=== PATIENT | female | born 1960 | race Caucasian/White ===

== ENCOUNTER 2022-12-12 11:32 | Outpatient (CLI) | payer MEDICAID | END 2022-12-12 11:33 | disposition EMS.NT | LOC: EMS 11:32 | DX: Z03.89 Encounter for observation for other suspected diseases and conditions ruled out (principal) ==

== ENCOUNTER 2022-12-13 13:11 | Observation (INO) | payer MEDICAID ==
--- NOTE | 2022-12-13 13:39 | ED Physician Documentation ---
History of Present Illness - Stated complaint Stated Complaint: MOUTH TINGLING/RT ARM NUMB - Chief complaint Chief Complaint: Neuro - Additonal information Additional information: 62-year-old female presents emergency department for evaluation and concern of recent TIAs. For the last week she has had 4 episodes in which her right arm goes completely numb and she is unable to move it. The symptoms last anywhere from a few seconds up to about 5 minutes. Last episode was yesterday afternoon. Following this episode she also had a period of perioral numbness and tingling that quickly resolved. During these episodes she is denying a slurred speech or facial droop. Patient reports that she had COVID infection about 2 weeks ago. She is vaccinated though not boosted. She is a pack per day tobacco user. Takes no prescribed medications and denies any history of hypertension, known coronary artery disease or previous stroke. She went to a local walk-in clinic this morning and was advised to come to the ER. She is denying any current symptoms as described above. Review of Systems Constitutional: denies: Fever, Chills Cardiac: reports: Reviewed and negative Respiratory: reports: Reviewed and negative GI: reports: Reviewed and negative Musculoskeletal: reports: Reviewed and negative Neurologic: reports: Focal weakness. 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 - Present Medications Home Medications: Ambulatory Orders Medication Instructions Recorded Confirmed No Known Home Medications 12/13/22 12/13/22 - Allergies Allergies/Adverse Reactions: Allergies Allergy/AdvReac Type Severity Reaction Status Date / Time Penicillins Allergy Rash Verified 12/13/22 13:26 Sulfa (Sulfonamide Allergy Rash Verified 12/13/22 13:26 Antibiotics) - Social History Does the pt smoke?: Yes Smoking Status: Current every day smoker Does the pt drink ETOH?: No Does the pt have substance abuse?: Yes Substance Use and Type: Marijuana - Immunizations Immunizations are current?: Yes PD ED PE NORMAL - General General: Alert and oriented X 3, No acute distress, Well developed/nourished - HEENT HEENT: Atraumatic, Moist mucous membranes - Neck Neck: Supple, no meningeal sign, No adenopathy - Cardiac Cardiac: RRR, No murmur - Respiratory Respiratory: No respiratory distress - Abdomen Abdomen: Normal bowel sounds, Soft - Neuro Neuro: Alert and oriented X 3, log grader 2-12 intact, No motor deficit, No sensory deficit, Normal speech Eye Opening: Spontaneous Motor: Obeys Commands Verbal: Oriented GCS Score: 15 Results - Vitals Vitals: Vital Signs - 24 hr 12/13/22 12/13/22 12/13/22 13:22 14:04 16:00 Temperature 36.7 C Heart Rate 89 83 79 Respiratory 16 19 17 Rate Blood Pressure 108/59 L 106/71 113/70 O2 Saturation 98 94 96 Oxygen O2 Source Room air - EKG (time done) 1358 EKG releavant findings:: EKG personally interpreted by author of this note. Relevant findings are: Rate: Rate (enter#) (78) Rhythm: NSR [place]: Normal Intervals: Normal DE QRS: Normal Ischemia: Normal ST segments Compare to prior EKG: Old EKG unavailable Computer interpretation: Agree with computer - Labs Labs: Laboratory Tests 12/13/22 12/13/22 12/13/22 13:39 13:39 13:39 WBC 10.2 RBC 4.38 Hgb 13.3 Hct 39.1 MCV 89.3 MCH 30.4 MCHC 34.0 RDW 13.2 Plt Count 362 MPV 9.6 Neut # (Auto) 5.7 Lymph # (Auto) 3.8 H Bath # (Auto) 0.6 Eos # (Auto) 0.1 Baso # (Auto) 0.1 Absolute Nucleated RBC 0.00 Nucleated RBC % 0.0 PT 13.1 H INR 1.2 Sodium 136 Potassium 3.8 Chloride 104 Carbon Dioxide 27 Anion Gap 5.0 L BUN 11 Creatinine 0.7 Estimated GFR (MDRD) 85 L Glucose 162 H Calcium 9.6 Total Bilirubin 0.5 AST 13 ALT 11 Alkaline Phosphatase 61 Total Protein 7.1 Albumin 4.3 Globulin 2.8 Albumin/Globulin Ratio 1.5 Lipase 42 - Rads (name of study) angio head neck Relevant Findings:: Final report received (6 atherosclerotic plaque without significant stenosis, large vessel occlusion or aneurysm. Degenerative disc disease and arthropathy in the cervical spine results in moderate to severe central stenosis C4-C6) PD Medical Decision Making - ED course Complexity details: reviewed results, re-evaluated patient, d/w patient ED course: 62-year-old female presents emergency department for evaluation of 4 episodes over the last week in which she has lost sensation and movement of the right arm. The symptoms last anywhere from about 30 seconds to 5 minutes. Last episode was yesterday afternoon. She is also had some associated perioral numbness and tingling. Patient is a heavy tobacco user smoking 1 pack/day. Denies any known history of coronary artery disease or previous strokes. Takes no prescribed medications. Presentation to the emergency department today she is asymptomatic and has no acute focal neurological findings. Her NIHSS is 0. She was placed on monitoring coordinator and is in sinus rhythm. Her twelve-lead EKG per my interpretation was nonischemic. CBC and electrolytes were obtained and per my interpretation no acute abnormalities. CT angiograms of the head and neck were also obtained which showed no significant stenosis aneurysm or obvious intracranial findings. Patient was administered 325 mg of aspirin here in the ER. However this patient does present with recurrent TIA episodes over the last week. She will be brought into the hospital overnight for observation. Echo pending for the morning. As well as an MRI. I have spoken to the patient who is in agreement for further hobs evaluation and Dr. Kinsey graciously agrees to admit for further evaluation and management. Departure - Departure Disposition: ED Place in Observation Clinical Impression: TIA (transient ischemic attack) Forms: PCP List NIHSS - Time Time: 13:35 - Level of Consciousness Level of consciousness: (0) Alert, Keenly responsive LOC Questions: (0) Answers both Q's correct LOC Commands: (0) Performs both correctly - Gaze Best Gaze: (0) Normal - Visual Visual: (0) No loss - Facial Palsy Facial Palsy: (0) Normal, symmetrical movement - Motor Arms (both separate) Motor Arm (right): (0) No drift Motor Arm (left): (0) No drift - Motor Legs (both separate) Motor Leg (right): (0) No drift Motor Leg (left): (0) No drift - Limb Ataxia Limb Ataxia: (0) Absent - Sensory Sensory: (0) Normal - Best Language Best Language: (0) No aphasia - Dysarthria Dysarthria: (0) Normal - Extinction and Inattention (formally neg Extinction and inattention: (0) No abnormality - Total Score/Results Total Score/Result: 0
[2022-12-13 14:06] LABS: BASOPHILS # (AUTO) 0.1 10^3/uL (0.0-0.1); BASOPHILS % (AUTO) 0.7 %; EOSINOPHILS # (AUTO) 0.1 10^3/uL (0.0-0.7); EOSINOPHILS % (AUTO) 0.8 %; HCT - HEMATOCRIT 39.1 % (37.0-47.0); HGB - HEMOGLOBIN 13.3 g/dL (12.0-16.0); LYMPHOCYTES # (AUTO) 3.8 10^3/uL (1.5-3.5); MEAN CORPUSCULAR HEMOGLOBIN 30.4 pg (27.0-31.0); MEAN CORPUSCULAR VOLUME 89.3 fL (81.0-99.0); MEAN PLATELET VOLUME 9.6 fL (7.9-10.8); MONOCYTES # (AUTO) 0.6 10^3/uL (0.0-1.0); MONOCYTES % (AUTO) 5.9 %; NEUTROPHILS # (AUTO) 5.7 10^3/uL (1.5-6.6); NEUTROPHILS % (AUTO) 55.3 %; PLT - PLATELET COUNT 362 10^3/uL (130-450); RED BLOOD COUNT 4.38 10^6/uL (4.20-5.40); RED CELL DISTRIBUTION WIDTH 13.2 % (12.0-15.0); WHITE BLOOD COUNT 10.2 x10^3/uL (4.8-10.8)
[2022-12-13 14:11] LABS: INR 1.2 (0.8-1.2); PT - PROTHROMBIN TIME 13.1 secs (9.9-12.6)
[2022-12-13 14:17] LABS: ALBUMIN 4.3 g/dL (3.2-5.5); ALBUMIN/GLOBULIN RATIO 1.5 (1.0-2.2); BILIRUBIN,TOTAL 0.5 mg/dL (0.2-1.0); CALCIUM 9.6 mg/dL (8.5-10.3); CREATININE 0.7 mg/dL (0.6-1.3); POTASSIUM 3.8 mmol/L (3.5-4.5); TOTAL PROTEIN 7.1 g/dL (6.4-8.9)
[2022-12-13] MEDS ORDERED: iohexoL-300 100 ML VIAL IVP ONE (15:31)
--- NOTE | 2022-12-13 16:18 | CT Report ---
PROCEDURE: CT Angio Head/Neck INDICATIONS: ? TIA TECHNIQUE: Helical axial CT of the head and neck was obtained during the arterial phase of a intrave nous contrast injection utilizing an angiographic protocol. Multiplanar traditional and MIP reformat s were also obtained. COMPLIANCE STATEMENTS: Any estimate of proximal ICA stenosis was calculated using NASCET guidelines. Dose reduction techniques included either automated exposure control or adjustment of exposure sandip eters. COMPARISON: None. FINDINGS: Cerebral CT Angiogram: Internal carotid arteries: No acute findings. Intracranial ICA are patent with no significant steno sis. No occlusion. No aneurysm. Anterior cerebral arteries: Unremarkable. No significant stenosis. No occlusion. No aneurysm. Middle cerebral arteries: Unremarkable. No significant stenosis. No occlusion. No aneurysm. Posterior cerebral arteries: Unremarkable. No significant stenosis. No occlusion. No aneurysm. Basilar artery: Unremarkable. No significant stenosis. No occlusion. No aneurysm. Vertebral arteries: Unremarkable as visualized. Dural venous sinuses: Unremarkable given phase of enhancement. Other: Arterial phase appearance of the brain parenchyma is unremarkable. Left maxillary sinus mucosa l thickening measures up to [address] Angiogram: Internal carotid arteries: Atherosclerotic plaque in both proximal internal carotid arteries without stenosis utilizing NASCET criteria Common carotid arteries: Unremarkable. No significant stenosis. No dissection or occlusion. External carotid arteries: Unremarkable. No occlusion. Vertebral arteries: Unremarkable. No significant stenosis. No dissection or occlusion. Aortic Arch and Mediastinum: Partially visualized aortic arch unremarkable without evidence of aneury sm. Origins of the great vessels unremarkable. Other: Arterial phase soft tissues of the neck are unremarkable. Severe biapical pulmonary emphysema present. Multilevel degenerative disc disease and arthropathy results in varying degrees of central a nd foraminal stenosis including moderate to severe central stenosis C4-5 and C5-6 IMPRESSION: Atherosclerotic plaque without significant stenosis, large vessel occlusion or aneurysm. Degenerative disc disease and arthropathy in the cervical spine results in moderate to severe central stenosis at C4-5 and C5-6. Reviewed by: Rickey Patel MD on 12/13/2022 3:17 PM [facility] Approved by: Rickey Patel MD on 12/13/2022 3:17 PM [place] Station ID: [id number]
[2022-12-13] MEDS ORDERED: ASPIRIN CHEW 81 MG TABLET PO STA (16:32)
[2022-12-13] MEDS ORDERED: ONDANSETRON 4 MG/2 ML VIAL IVP PRN (17:34)
[2022-12-13] MEDS ORDERED: SODIUM CHLORIDE FLUSH 0.9% 10 ML SYRINGE IVP PRN (17:34)
[2022-12-13] MEDS ORDERED: ACETAMINOPHEN 325 MG TABLET PO PRN (17:34)
--- NOTE | 2022-12-13 17:43 | HISTORY & PHYSICAL EXAMINATION ---
Chief Complaint - Chief Complaint Chief Complaint: R arm numb and weak, comes and goes, 4 episodes History of Present Illness - Admitted From Admitted From:: ED - History Obtained From History obtained from: ED provider and the patient - History of Present Illness HPI Comment/Other: This is a 62-year-old white female with a negative past medical history. She is a 1 pack-a-day smoker. She presented to the walk-in clinic today and was sent to the ER for evaluation of her complaint, which was that over the past 1 week, she has had 4 episodes of sudden numbness and weakness of the right arm. These episodes last from 30 seconds to 5 minutes. The last one was yesterday. Following this, there is brief perioral numbness. There are no other areas of weakness, no problems with speech. She has never had a stroke before, and has no cardiac history. In the ED, she underwent brain imaging with angio that showed no large vessel occlusions, no findings of a stroke or mass or hemorrhage. The ED provider spoke to me about this patient. She will be placed in Observation for further evaluation of a TIA. History - Past Medical History Cardiovascular: reports: None Respiratory: reports: COPD (Dx 12 years ago. 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 Living arrangement: At home Living Situation: With spouse/s.o. 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 She smokes up to a PPD. She drinks no alcohol. She occais smokes marijuana. - Substance History Dependence: Experiences withdrawal or developed tolerances: Tobacco - POLST Patient has POLST: No Meds/Allgy - Home Medications Home Medications: Ambulatory Orders Medication Instructions Recorded Confirmed No Known Home Medications 12/13/22 12/13/22 - Allergies Allergies/Adverse Reactions: Allergies Allergy/AdvReac Type Severity Reaction Status Date / Time Penicillins Allergy Rash Verified 12/13/22 13:26 Sulfa (Sulfonamide Allergy Rash Verified 12/13/22 13:26 Antibiotics) Review of Systems - Neurological Neurological: reports: Focal weakness - All Other Systems All Other Systems: reports: Reviewed and negative Exam - Vital Signs Vital Signs: Vital Signs x48h Temp Pulse Resp BP Pulse Ox 12/13/22 16:00 79 17 113/70 96 12/13/22 14:04 83 19 106/71 94 12/13/22 13:22 36.7 C 89 16 108/59 L 98 - Physical Exam General Appearance: positive: No acute distress, Alert Eyes Bilateral: positive: Normal inspection, EOMI ENT: positive: ENT inspection nml, No signs of dehydration Neck: positive: Nml inspection, No JVD, Carotid bruit (R sided) Respiratory: positive: No respiratory distress, Wheezes (at R apex) Cardiovascular: positive: Regular rate & rhythm, No murmur Abdomen: positive: No organomegaly, Nml bowel sounds, No distention Skin: positive: Warm, Dry Extremities: positive: Non-tender, No pedal edema Neurologic/Psychiatric: positive: Oriented x3, Motor nml, Sensation nml Conclusion/Plan - Problem List (1) TIA (transient ischemic attack) Conclusion/Plan: Plan: We will place the patient on telemetry to watch for A-fib Obtain an Echo with bubble study to eval for source of embolus or shunt Obtain MRI brain Check her fasting lipid panel and treat per guidelines. Continue with 1 baby aspirin daily lifelong. If neurodeficit recurrs, will order neurochecks q4h (2) Carotid bruit Conclusion/Plan: Will obtain carotid Doppler exam Qualifiers: Laterality: right Qualified Code(s): R09.89 - Other specified symptoms and signs involving the circulatory and respiratory systems (3) Tobacco use Conclusion/Plan: Plan: Will order nicotine patch as needed nicotine urges Smoking cessation will be promoted - Lab Results Fish Bones: 12/13/22 13:39 12/13/22 13:39 - Diagnostic Imaging Results Diagnostic Imaging Results: positive: Final report reviewed
--- NOTE | 2022-12-13 18:12 | MRI Report ---
PROCEDURE: BRAIN WO INDICATIONS: TIA X 4 over the last week TECHNIQUE: Noncontrast axial T1 spin echo, axial T2 fast spin echo, sagittal and axial FLAIR, coronal T2 fast sp in echo, axial gradient echo, axial diffusion and ADC through the brain. COMPARISON: None. FINDINGS: Image quality: Excellent. CSF Spaces: Basal cisterns are patent. No extra-axial fluid collections. Ventricles are normal in size and shape. Brain: No intracranial masses or hemorrhage. Walker/white matter interface is normal. Brainstem appe ars normal. Small focus of restricted diffusion in the subcortical white matter of the middle left fr ontal lobe (series 9, image 36). No chronic ischemic insults. Normal intravascular flow voids are pr esent. Skull and face: Calvarium has normal marrow signal. Orbits appear normal. Sinuses: Sinuses and mastoids are clear. IMPRESSION: Small focus of restricted diffusion without corresponding T2 FLAIR edema in the middle left frontal l obe, suggestive of acute infarct, probably late acute given history. Reviewed by: Sonny Garza on 12/13/2022 6:10 PM [facility] Approved by: Sonny Garza on 12/13/2022 6:10 PM PST Station ID: [id number]
[2022-12-13] MEDS: NICOTINE 14 MG PATCH TOP SCH (18:31)
[2022-12-13] MEDS ORDERED: diphenhydrAMINE 25 MG CAPSULE PO PRN (21:19)
[2022-12-13] MEDS: guaiFENesin 600 MG TABLET PO SCH (21:31)
--- NOTE | 2022-12-13 23:20 | Ultrasound Report ---
PROCEDURE: Carotid Doppler Complete INDICATIONS: TIAs, R-sided carotid bruit heard TECHNIQUE: Color and pulse Doppler interrogation was performed of both carotid systems, with image documentation and velocity measurements. COMPARISON: None. FINDINGS: Right side: Brachial blood pressure: 115/56 mm Hg. Common carotid artery peak systolic velocity: 89.8 cm/sec. Internal carotid artery peak systolic velocity: 94.5 cm/sec. Internal carotid artery end diastolic velocity: 34.7 cm/sec. External carotid artery peak systolic velocity: 103.9 cm/sec. ICA/CCA peak systolic ratio: 1.1 . Walker scale imaging description: Mild to moderate amount of atherosclerotic plaques are seen in dista l common carotid artery and proximal internal and external carotid arteries. Percent internal carotid artery stenosis: Less than 50 percent stenosis.. Vertebral artery: Flow direction is antegrade. Left side: Brachial blood pressure: 112/64 mm Hg. Common carotid artery peak systolic velocity: 144.2 cm/sec. Internal carotid artery peak systolic velocity: 92.2 cm/sec. Internal carotid artery end diastolic velocity: 21.5 cm/sec. External carotid artery peak systolic velocity: 104.9 cm/sec. ICA/CCA peak systolic ratio: 0.6 . Walker scale imaging description: Mild to moderate amount of atherosclerotic plaques are noted in dist al common carotid artery and proximal internal and external carotid arteries. Percent internal carotid artery stenosis: Less than 50 percent stenosis. Vertebral artery: Flow direction is antegrade. IMPRESSION: 1. In the right internal carotid artery, there is less than 50 percent stenosis based on peak systoli c velocity criteria. 2. In the left internal carotid artery, there is less than 50 percent stenosis based on peak systolic velocity criteria. 3. Antegrade blood flow within the right vertebral artery. 4. Antegrade blood flow within the left vertebral artery. The estimate of stenosis included in the report of the imaging study was calculated using the [facility]-end orsed standards of carotid artery stenosis. Reviewed by: Isael Engel MD on 12/13/2022 11:19 PM PST Approved by: Isael Engel MD on 12/13/2022 11:19 PM PST Station ID: [id number]
[2022-12-14] MEDS: SODIUM CHLORIDE FLUSH 0.9% 10 ML SYRINGE IVP SCH ×3 (00:04→18:15)
[2022-12-14 06:08] LABS: CHOL/HDL RATIO 5.6 (<4.4); CHOLESTEROL 230 mg/dL; HDL CHOLESTEROL 41 mg/dL; LDL CHOLESTEROL,CALCULATED 160 mg/dL; LDL/HDL RATIO 3.9 (<4.4); TRIGLYCERIDES 144 mg/dL (48-352); VLDL CHOLESTEROL 29 mg/dL
[2022-12-14] MEDS: guaiFENesin 600 MG TABLET PO SCH (08:22)
[2022-12-14] MEDS: NICOTINE 14 MG PATCH TOP SCH (08:23)
[2022-12-14] MEDS ORDERED: ASPIRIN EC 81 MG TABLET PO SCH (09:00)
--- NOTE | 2022-12-14 11:15 | PHARMACY PROGRESS NOTE ---
- Best Possible Medication History Admit Date and Time: 12/13/22 1734 Processed by: Pharmacy Medication History completed: Yes Patient Interview: Completed Secondary Source(s): Insurance records As the person ultimately responsible for medication therapy, providers are able to order a medication from an existing home medication list in [facility] via the "Reconcile Routine" prior to Confirmation of that medication by contracting support specialist. Such practice is discouraged except when the physician, in their clinical judgment, deems that a medical need exists for a medication without regard to previous use.
--- NOTE | 2022-12-14 17:37 | Discharge Plan ---
Discharge Plan Problem Reviewed?: Yes Disposition: Home, Self Care Condition: Good Diet: Cardiac Activity Restrictions: No Restrictions No Smoking: If you smoke, Please STOP! Call for help.
--- NOTE | 2022-12-14 17:43 | DISCHARGE SUMMARY ---
Discharge Summary Discharge Date: 12/14/22 Discharging Provider: Jaydon Gardner DO Code Status: Attempt Resuscitation Condition at Discharge: Good Discharge Disposition: 01 Home, Self Care - DIAGNOSES Admission Diagnoses: Ischemic CVA Discharge Diagnoses with Status of Each Condition: Ischemic CVA with no residual weakness - HPI History of Present Illness: This is a 62-year-old white female with a negative past medical history. She is a 1 pack-a-day smoker. She presented to the walk-in clinic today and was sent to the ER for evaluation of her complaint, which was that over the past 1 week, she has had 4 episodes of sudden numbness and weakness of the right arm. These episodes last from 30 seconds to 5 minutes. The last one was yesterday. Following this, there is brief perioral numbness. There are no other areas of weakness, no problems with speech. She has never had a stroke before, and has no cardiac history. In the ED, she underwent brain imaging with angio that showed no large vessel occlusions, no findings of a stroke or mass or hemorrhage. The ED provider spoke to me about this patient. She will be placed in Observation for further evaluation of a TIA. - HOSPITAL COURSE Hospital Course: Patient is a 62-year-old female who presented to the ED due to complaints of right arm weakness over 1 week. In the ED a CTA/CT head was performed which was unremarkable. This was followed by an MRI which revealed evidence of a left frontal lobe infarct. She was started on aspirin and atorvastatin. A TTE was performed showing no evidence of intracardiac thrombus. Patient had an LVEF of 60 to 65% with no evidence of left atrial enlargement. She was advised to quit smoking. Patient was also given information in order to establish care with PCP. - ALLERGIES Allergies/Adverse Reactions: Allergies Allergy/AdvReac Type Severity Reaction Status Date / Time Penicillins Allergy Rash Verified 12/13/22 13:26 Sulfa (Sulfonamide Allergy Rash Verified 12/13/22 13:26 Antibiotics) - MEDICATIONS Home Medications: Ambulatory Orders Medication Instructions Recorded Confirmed Acetaminophen [Aphen] 325 mg PO Q6H PRN 12/14/22 12/14/22 Albuterol Sulfate [Proventil Hfa] 2 puffs PO Q6H PRN 12/14/22 12/14/22 Aspirin [Aspirin EC] 81 mg PO DAILY #30 tab 12/14/22 Atorvastatin Calcium 40 mg PO DAILY #30 tablet 12/14/22 diphenhydrAMINE [Benadryl] 25 mg PO DAILY PRN 12/14/22 12/14/22 - PHYSICAL EXAM AT DISCHARGE General Appearance: positive: No acute distress, Alert Eyes Bilateral: positive: Normal inspection Respiratory: positive: Chest non-tender, No respiratory distress, Breath sounds nml Cardiovascular: positive: Regular rate & rhythm, No murmur Abdomen: positive: Non-tender, No distention Neurologic/Psychiatric: positive: Oriented x3, CN's nml (2-12), Motor nml, Sensation nml, Mood/affect nml - LABS Result Diagrams: 12/13/22 13:39 12/13/22 13:39 - QUALITY (Female Hip Fx Only) Was patient sent home on osteoporosis medication?: No - FOLLOW UP Follow Up: Was given a list of PCP's for follow-up. - TIME SPENT Time Spent in Discharge (Minutes): 35
[2022-12-14] MEDS ORDERED: ATORVASTATIN 40 MG TABLET PO SCH (18:00)
[2022-12-14 18:07] VITALS: BP 119/63; O2SAT 98
== END 2022-12-14 18:20 | disposition home or self-care (01) ==
LOC: ED 13:11 → MS2 17:34
PROVIDERS: ADMIT Internal Medicine; ATTEND Family Medicine
DX: I63.9 Cerebral infarction, unspecified (principal); R29.700 NIHSS score 0; J44.9 Chronic obstructive pulmonary disease, unspecified; M48.02 Spinal stenosis, cervical region; R09.89 Other specified symptoms and signs involving the circulatory and respiratory systems; E78.00 Pure hypercholesterolemia, unspecified; F17.210 Nicotine dependence, cigarettes, uncomplicated; Z86.16 Personal history of COVID-19; Z28.311 Partially vaccinated for COVID-19
CPT/HCPCS: 36415; 70496; 70498; 70551; 80053; 80061; 83690; 84443; 85025; 85610; 93005; 93306; 93880; 99284; 99285; 99406; A9270; G0378; Q9967; 83721

== ENCOUNTER 2023-02-11 10:47 | Outpatient (CLI) | payer MEDICAID ==
--- NOTE | 2023-02-11 16:26 | CT Report ---
PROCEDURE: Lung Cancer Screen INDICATIONS: TOBACCO ABUSE TECHNIQUE: A CT scan of the chest was performed. Intravenous contrast media was not administered. Images were re corded and evaluated at appropriate window settings. Reformats: axial MIP of the chest, coronal and s agittal. For radiation dose reduction, the following was used: automated exposure control, adjustment of mA and/or kV according to patient size. COMPARISON: None. FINDINGS: Image quality: Diagnostic. Prior cancer history: No. Lungs and pleura: No pleural effusions. No pneumothorax. Moderate centrilobular emphysema. There is a fat-containing soft tissue mass in the left lower lobe measuring 2.4 x 2.1 cm containing c entral dystrophic calcifications consistent with a benign hamartoma. There are multiple juxtapleural round solid pulmonary nodules with smooth margins measuring less than 7 mm. Additional scattered pulm onary nodules as follows: -5 mm right lower lobe nodule (3/244, MIP image 123) -6 mm left lower lobe nodule (3/247, MIP image 124) -6 mm right lower lobe nodule (3/210, MIP image 106) Additionally, there is a right middle lobe triangular shaped subfissural nodule (3/184, MIP image 92) is consistent with a subfissural lymph node. Mediastinum: Heart size is normal. No pericardial effusion. Moderate coronary artery calcifications.. No mediastinal adenopathy by size criteria. Chest wall and lower neck: Thyroid is unremarkable. No axillary or supraclavicular adenopathy by size . Bones: No aggressive osseous abnormality. Upper Abdomen: Mild degenerative changes without acute or suspicious osseous abnormality.. IMPRESSION: Moderate emphysematous changes. Left lower lobe hamartoma. Multiple smoothly marginated round juxtapleural pulmonary nodes measuring less than 10 mm. Multiple solid pulmonary nodules measuring up to 6 mm. Lung RAD: 3 - Probably Benign. Recommendation: Continue screening in 6 Months with LDCT Non-Lung Significant Findings: Coronary Arterial Calcification - Moderate or Severe. Consider cardiol ogy referral. Reviewed by: Argenis Watson MD on 02/11/2023 4:25 PM PST Approved by: Argenis Watson MD on 02/11/2023 4:25 PM PST Station ID: [id number]
== END 2023-02-11 10:48 | disposition home or self-care (01) ==
LOC: DI 10:47
PROVIDERS: ATTEND Physician Assistant Medical
DX: Z12.2 Encounter for screening for malignant neoplasm of respiratory organs (principal); J43.9 Emphysema, unspecified; R91.8 Other nonspecific abnormal finding of lung field; I25.10 Atherosclerotic heart disease of native coronary artery without angina pectoris; S27.321A Contusion of lung, unilateral, initial encounter; F17.200 Nicotine dependence, unspecified, uncomplicated

== ENCOUNTER 2023-03-28 12:24 | Outpatient (CLI) | payer MEDICAID ==
--- NOTE | 2023-03-29 09:32 | Mammography Report ---
BILATERAL DIGITAL DIAGNOSTIC MAMMOGRAM 3D/2D: 03/28/2023 CLINICAL: Right nipple lesion. Due for bilateral. No prior exams were available for comparison. Both breasts are heterogeneously dense, which may obscure small masses (category c / 51-75% glandular tissue). No significant masses, calcifications, or other findings are seen in either breast. Specifically, no finding to correspond to the patient's nipple abnormality. IMPRESSION: NEGATIVE There is no abnormality seen in the right breast to correspond with the nipple abnormality. Clinical follow up is recommended with PCP or senior windows engineer for symptoms as needed. There is no mammographic evidence of malignancy. Return to annual mammogram screening schedule is rec ommended. Findings and recommendations were conveyed to the patient at time of exam. Based on the Tyrer Cuzick model (a risk assessment model) the patient's lifetime risk is 9.8% and her 10 year risk is 4.4%. According to the ACR, ACS, and NCCN guidelines, an annual breast MRI exam saima g with mammogram is recommended if the patient's lifetime risk is 20% or greater. This exam was interpreted at Station ID: [id number]. NOTE: For mammograms, a report in lay terms will be sent to the patient. Approximately 15% of breast malignancies will not be visualized mammographically. In the management of a palpable breast mass, a negative mammogram must not discourage biopsy of a clinically suspicious lesion. Electronically Signed By: Shari barbour/:03/28/2023 13:12:26 ACR BI-RADS Category 1: Negative 3341F PARENCHYMAL PATTERN: (D) - The breast(s) demonstrate(s) heterogeneously dense fibroglandular parvikiy hammad. BI-RADS CATEGORY: (1) - 1 RECOMMENDATION: (ANNUAL) - Recommend routine annual screening mammography. [id number] return to screening LATERALITY: (B)
== END 2023-03-28 12:25 | disposition home or self-care (01) ==
LOC: DI 12:24
PROVIDERS: ATTEND Physician Assistant Medical
DX: N63.41 Unspecified lump in right breast, subareolar (principal); R92.333 Mammographic heterogeneous density, bilateral breasts

== ENCOUNTER 2023-04-19 04:31 | Outpatient (CLI) | payer MEDICAID | END 2023-04-19 04:32 | disposition critical access hospital (66) | LOC: EMS 04:31 | DX: M54.89 Other dorsalgia (principal); R55 Syncope and collapse | CPT/HCPCS: A0425; A0429; A0999 ==

== ENCOUNTER 2023-04-19 04:57 | Emergency (ER) | payer MEDICAID ==
--- NOTE | 2023-04-19 05:23 | ED Physician Documentation ---
PD HPI SYNCOPE - Stated complaint Stated Complaint: SYNCOPE S/P BACK PAIN EPISODE - Chief complaint Chief Complaint: Neuro - History obtained from History obtained from: Patient, EMS - History of Present Illness Witnessed: Witnessed Timing - onset: How many minutes ago (1) Duration: Minutes (1) Preceding symptoms: Other (back pain). No: Abdominal pain Associated symptoms: Other (she has had back pain for several days without known injury. Pain sharp intermittently, with increased pain today. Had severe pain episode just prior to the syncope.) Contributing factors: Noxious stimulae (severe back pain). No: Recent med change, Decreased PO intake Injury occurred: No: Fell, Head injury, Neck injury Similar symptoms before: No diagnosis (recent back pain without injury. 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 - Present Medications Home Medications: Ambulatory Orders Medication Instructions Recorded Confirmed Acetaminophen [Aphen] 325 mg PO Q6H PRN 12/14/22 04/19/23 Albuterol Sulfate [Proventil Hfa] 2 puffs PO Q6H PRN 12/14/22 04/19/23 Aspirin [Aspirin EC] 81 mg PO DAILY #30 tab 12/14/22 04/19/23 Atorvastatin Calcium 40 mg PO DAILY #30 tablet 12/14/22 04/19/23 diphenhydrAMINE [Benadryl] 25 mg PO DAILY PRN 12/14/22 04/19/23 Clopidogrel Bisulfate [Plavix] 75 mg PO DAILY 21 Days #21 tab 12/15/22 04/19/23 HYDROcod/ACETAM 5/325 [[place] 5/325] 1 ea PO Q6H PRN #25 tablet 04/19/23 Meloxicam [Mobic] 7.5 mg PO BID 15 Days #30 tablet 04/19/23 methocarbamoL [Robaxin] 500 mg PO Q6H PRN #30 tablet 04/19/23 - Allergies Allergies/Adverse Reactions: Allergies Allergy/AdvReac Type Severity Reaction Status Date / Time Penicillins Allergy Rash Verified 04/19/23 05:12 Sulfa (Sulfonamide Allergy Rash Verified 04/19/23 05:12 Antibiotics) - Social History Does the pt smoke?: Yes Smoking Status: Current every day smoker Does the pt drink ETOH?: No Does the pt have substance abuse?: Yes - Immunizations Immunizations are current?: Yes - POLST Patient has POLST: No PD ED PE NORMAL - Vitals Vital signs reviewed: Yes - General General: Alert and oriented X 3, Well developed/nourished, Other (in pain due to the back. No abd pain. ) - Neck Neck: Supple, no meningeal sign, No adenopathy - Cardiac Cardiac: RRR, No murmur - Respiratory Respiratory: No respiratory distress, Clear bilaterally - Abdomen Abdomen: Soft, Non tender - Back Back: No spinal TTP - Derm Derm: Normal color, Warm and dry - Extremities Extremities: No edema, No calf tenderness / cord - Neuro Neuro: Alert and oriented X 3, No motor deficit, Normal speech Results - Vitals Vitals: Oxygen O2 Source Room air - Labs Labs: Laboratory Tests 04/19/23 04/19/23 04/19/23 05:33 06:10 06:10 WBC 8.9 RBC 4.41 Hgb 12.9 Hct 41.1 MCV 93.2 MCH 29.3 MCHC 31.4 L RDW 13.3 Plt Count 245 MPV 9.2 Neut # (Auto) 5.7 Lymph # (Auto) 2.5 [place] # (Auto) 0.6 Eos # (Auto) 0.1 Baso # (Auto) 0.1 Absolute Nucleated RBC 0.00 Nucleated RBC % 0.0 Sodium 133 L Potassium 4.3 Chloride 103 Carbon Dioxide 26 Anion Gap 4.0 L BUN 18 Creatinine 0.8 Estimated GFR (MDRD) 72 L Glucose 140 H Calcium 9.4 Total Bilirubin 0.3 AST 12 ALT 14 Alkaline Phosphatase 60 Total Protein 6.4 Albumin 4.1 Globulin 2.3 Albumin/Globulin Ratio 1.8 Lipase 27 Urine Color YELLOW Urine Clarity CLEAR Urine pH 6.0 Ur Specific [place] 1.025 Urine Protein NEGATIVE Urine Glucose (UA) NEGATIVE Urine Ketones NEGATIVE Urine Occult Blood MODERATE H Urine Nitrite NEGATIVE Urine Bilirubin NEGATIVE Urine Urobilinogen 0.2 (NORMAL) Ur Leukocyte Esterase NEGATIVE Urine RBC 0-5 Urine WBC 0-3 Ur Squamous Epith Cells MOD Squamous H Urine Bacteria Few Ur Microscopic Review INDICATED Urine Culture Comments NOT INDICATED - Rads (name of study) abd/pelvic angio Relevant Findings:: Prelim report reviewed (mild sccular enlargement of the infrarenal aorta 2.3 cm aneurysmal enlargemnet without dissection nor leakage. No other acute findings. Presume myofascial back pain. Also presume the syncope was vasovagal response to the back pain. No other causative finding found. ), EMP independent interpretation of test PD Medical Decision Making - ED course Complexity details: reviewed results (CT abd and pelvis did not show any acute porcess to give cause for syncope and the back pain. Indicental small AAA at 2.3 cm. No signs of dissection/leakage. No kidney stones. No spinal abnormality. UA without infection. ), re-evaluated patient (pain reasonably improved with IV pain meds toradol and dilaudid. ), considered differential (having back pain wihtout injury, then with syncope as pain was worse. Certainly concern for vascular process such as dissection or rupturing aneurysm. Also consider other pain causes such as renal stone, divertic, ruptured viscus, etc. Need CT to evaluate, with contrast. Meanwhile address pain. ), d/w patient Departure - Departure Disposition: 01 Home, Self Care Clinical Impression: Lower back pain, Syncope, Abdominal aortic aneurysm (AAA) Condition: Stable Record reviewed to determine appropriate education?: Yes Instructions: ED Low Back Pain Injury, ED Syncope Vasovagal Prescriptions: Meloxicam [Mobic] 7.5 mg PO BID 15 Days #30 tablet HYDROcod/ACETAM 5/325 [[place] 5/325] 1 ea PO Q6H PRN #25 tablet PRN Reason: Pain methocarbamoL [Robaxin] 500 mg PO Q6H PRN #30 tablet PRN Reason: Spasms Comments: Your basic blood tests are good without any signs of anemia or electrolyte abnormalities. Your blood sugar was okay. No liver or pancreas abnormalities. The CT scan did show small dilatation of your aorta in the level of the abdomen. This is called an aneurysm but yours is small with only slightly enlarged more than normal. Your aneurysm is measuring about 2-1/2 cm. Typically concern comes when it is larger than 5 to 5-1/2 cm. Commonly these would be reassessed at an interval of 6 months to a year. Follow-up with your primary care to schedule a follow-up, commonly ultrasound specifically for the aorta to evaluate whether it is increasing in size over time. This does not have any connection to your back pain as there is no signs of it leaking or dissecting or bleeding. No other cause for your back pain is identified on the CT scan. Presume therefore musculoskeletal. There can be some arthritis perhaps through the spine though it did not look like any on the CT scan. Your EKG and blood tests and blood pressure did not show a obvious reason for your fainting. Presume it was a called vasovagal response where your heart rate or blood pressure paradoxically went down instead of up in response to pain. Commonly would treat the back pain like this with anti-inflammatories and muscle relaxant, heat stretching massage yoga and chiropractic. Add Tylenol or hydrocodone if needed for worse pains. I sent scripts for these medications to [facility] in [place]. I am prescribing a short course of narcotic pain medication for you. These are potentially dangerous and addictive medications that should be used carefully. These medications may constipate you. Take an [id number] stool softener such as docusate twice daily with plenty of water while taking these medications. If you go 24 hours without a bowel movement, take [id number] MiraLAX, per package instructions. Do not drink or drive while taking these medications. If you received narcotic or sedating medications while in the emergency department do not drive for 24 hours. Store this medication in a safe, secure place and out of reach of children. It is a violation of federal law to give or sell this medication to another person or to use in a manner other than prescribed. The ED will not refill narcotic prescriptions, including prescriptions lost or stolen. You can dispose of unwanted medications at the [facility]'s office or at several pharmacies such as [facility]. Forms: PCP List Discharge Date/Time: 04/19/23 08:27
[2023-04-19] MEDS ORDERED: iohexoL-300 150 ML BOTTLE ONE (05:28)
[2023-04-19] MEDS: ONDANSETRON 4 MG/2 ML VIAL IVP STA (05:29)
[2023-04-19] MEDS: HYDROmorphone 1 MG/ML CARPUJECT IVP STA ×2 (05:29→07:49)
[2023-04-19] MEDS: KETOROLAC 15 MG/ML VIAL IVP STA (05:29)
[2023-04-19] MEDS: iohexoL-300 100 ML VIAL IVP ONE (06:01)
[2023-04-19 06:16] LABS: BILIRUBIN,URINE NEGATIVE (NEGATIVE); GLUCOSE, URINE (UA) NEGATIVE (NEGATIVE); KETONES,URINE (UA) NEGATIVE (NEGATIVE); LEUKOCYTE ESTERASE, URINE NEGATIVE (NEGATIVE); NITRITE,URINE NEGATIVE (NEGATIVE); OCCULT BLOOD,URINE MODERATE (NEGATIVE); PROTEIN,URINE NEGATIVE (NEGATIVE); UROBILINOGEN,URINE 0.2 (NORMAL) E.U./dL (NORMAL)
[2023-04-19 06:18] LABS: CLARITY,URINE CLEAR (CLEAR)
[2023-04-19 06:19] LABS: BASOPHILS # (AUTO) 0.1 10^3/uL (0.0-0.1); BASOPHILS % (AUTO) 0.7 %; EOSINOPHILS # (AUTO) 0.1 10^3/uL (0.0-0.7); EOSINOPHILS % (AUTO) 0.9 %; HCT - HEMATOCRIT 41.1 % (37.0-47.0); HGB - HEMOGLOBIN 12.9 g/dL (12.0-16.0); LYMPHOCYTES # (AUTO) 2.5 10^3/uL (1.5-3.5); LYMPHOCYTES % (AUTO) 27.6 %; MEAN CORPUSCULAR HEMOGLOBIN 29.3 pg (27.0-31.0); MEAN CORPUSCULAR HGB CONC 31.4 g/dL (32.0-36.0); MEAN CORPUSCULAR VOLUME 93.2 fL (81.0-99.0); MEAN PLATELET VOLUME 9.2 fL (7.9-10.8); MONOCYTES # (AUTO) 0.6 10^3/uL (0.0-1.0); MONOCYTES % (AUTO) 6.5 %; NEUTROPHILS # (AUTO) 5.7 10^3/uL (1.5-6.6); NEUTROPHILS % (AUTO) 64.2 %; PLT - PLATELET COUNT 245 10^3/uL (130-450); RED BLOOD COUNT 4.41 10^6/uL (4.20-5.40); RED CELL DISTRIBUTION WIDTH 13.3 % (12.0-15.0); WHITE BLOOD COUNT 8.9 x10^3/uL (4.8-10.8)
[2023-04-19 06:35] LABS: ALBUMIN 4.1 g/dL (3.2-5.5); ALBUMIN/GLOBULIN RATIO 1.8 (1.0-2.2); BILIRUBIN,TOTAL 0.3 mg/dL (0.2-1.0); CALCIUM 9.4 mg/dL (8.5-10.3); CREATININE 0.8 mg/dL (0.6-1.3); POTASSIUM 4.3 mmol/L (3.5-4.5); TOTAL PROTEIN 6.4 g/dL (6.4-8.9)
[2023-04-19 06:45] LABS: BACTERIA,URINE Few /HPF (None Seen); RBC,URINE 0-5 /HPF (0-5); SQUAMOUS EPITHELIAL CELL,UR MOD Squamous (<= Few); WBC,URINE 0-3 /HPF (0-5)
[2023-04-19 08:15] VITALS: BP 121/67; O2SAT 93
--- NOTE | 2023-04-19 08:40 | CT Report ---
PROCEDURE: Angio Abdomen/Pelvis INDICATIONS: back pain and syncope CONTRAST: Omni 300 100mls TECHNIQUE: After the administration of intravenous contrast, 2.5 mm thick sections acquired from the diaphragm t o the symphysis. 10 mm maximum-intensity projection (MIP) reformats were then acquired. For radiati on dose reduction, the following was used: automated exposure control, adjustment of mA and/or kV ac cording to patient size. COMPARISON: None FINDINGS: Image quality: Excellent. Aorta: No aortic aneurysm or acute aortic syndrome. Borderline ectasia of the infrarenal aorta. Mesenteric arteries: Celiac trunk, superior and inferior mesenteric arteries appear patent. Right pelvic arteries: Unremarkable. Left pelvic arteries: Unremarkable. Extravascular soft tissues: Moderate centrilobular emphysema. Heart size is normal. Liver and splee n are normal in size and enhancement. Gallbladder is unremarkable. Biliary system is non dilated. Pancreas enhances normally. No adrenal nodules. Kidneys are normal in size and enhancement, without hydronephrosis. Non opacified bowel loops are normal in wall thickness and caliber. No free fluid or air. No retroperitoneal or mesenteric adenopathy. No ventral hernias. No suspicious bony lesion s. No vertebral body compression fractures. Colonic diverticulosis without evidence of diverticulit is. Ankylosis of the right sacroiliac joint. IMPRESSION: No aortic aneurysm or acute aortic syndrome. Disagreement with the preliminary interpretation, as an aortic aneurysm measures over 3 cm. The infra renal aorta is borderline ectatic. Reviewed by: Sonny Garza MD on 04/19/2023 8:39 AM PDT Approved by: Sonny Garza MD on 04/19/2023 8:39 AM PDT Station ID: [id number]
== END 2023-04-19 08:27 | disposition home or self-care (01) ==
LOC: EDUNIT# → ED 04:57
DX: R55 Syncope and collapse (principal); M54.50 Low back pain, unspecified; I71.40 Abdominal aortic aneurysm, without rupture, unspecified; J44.9 Chronic obstructive pulmonary disease, unspecified; Z79.02 Long term (current) use of antithrombotics/antiplatelets; Z79.899 Other long term (current) drug therapy; F17.200 Nicotine dependence, unspecified, uncomplicated
CPT/HCPCS: 36415; 74174; 80053; 81001; 83690; 85025; 93005; 96374; 96375; 96376; 99284; 99285; J1170; 81003; 87086

== ENCOUNTER 2023-10-24 10:40 | Outpatient (CLI) | payer MEDICAID ==
--- NOTE | 2023-10-24 16:37 | CT Report ---
PROCEDURE: Chest WO INDICATIONS: MULTIPLE LUNG NODULES TECHNIQUE: A CT scan of the chest was performed. Intravenous contrast media was not administered. Images were re corded and evaluated at appropriate window settings. Reformats: axial MIP of the chest, coronal and s agittal. For radiation dose reduction, the following was used: automated exposure control, adjustment of mA and/or kV according to patient size. COMPARISON: None. FINDINGS: Image quality: Diagnostic. Chest wall and lower neck: No thyroid nodule which requires sonographic follow up. No axillary or sup raclavicular adenopathy by size. Lungs and pleura: Moderate centrilobular emphysema. No consolidation. No pleural effusions. No pneum othorax. Stable left lower lobe hamartoma. Multiple solid pulmonary nodules. Examples include: - Stable 6 x 3 mm nodule, right lower lobe (series 4, image 63). -Stable 6 x 3 mm solid nodule, right lower lobe (series 4, image 64) -Stable 6 x 3 mm solid nodule, left lower lobe (series 4, image 72). Mediastinum: Heart size is normal. No pericardial effusion. No large vessel abnormality. No mediastin al adenopathy by size criteria. Bones: No aggressive osseous abnormality. Upper Abdomen: Unremarkable. IMPRESSION: Stable pulmonary nodules. Lung-RADS 2. Continued annual screening is recommended. Reviewed by: Sonny Garza MD on 10/24/2023 4:36 PM PDT Approved by: Sonny Garza MD on 10/24/2023 4:36 PM PDT Station ID: [id number]
== END 2023-10-24 10:41 | disposition home or self-care (01) ==
LOC: DI 10:40
PROVIDERS: ATTEND Registered Nurse
DX: R91.8 Other nonspecific abnormal finding of lung field (principal)